=== PATIENT | female | born 1975 | race Caucasian/White ===

== ENCOUNTER 2025-01-28 21:45 | Inpatient (IN) | payer MEDICAID, SELFPAY ==
[~2025-01-28] VITALS: Ht 167.6 cm; Wt 66.8 kg
[2025-01-28 22:36] VITALS: RESP 16; O2SAT 98
[2025-01-29] MEDS: sertraline 50mg tablet PO ONE (01:18)
[2025-01-29 07:56] VITALS: BP 127/79; PULSE 62; RESP 12; TEMP 97.3; O2SAT 98
[2025-01-29] MEDS ORDERED: sertraline 50mg tablet PO SCH (08:00)
[2025-01-29] MEDS ORDERED: magnesium hydroxide 30ml (MOM) UD suspension PO PRN (08:35)
[2025-01-29] MEDS ORDERED: loperamide 2mg capsule PO PRN (08:35)
[2025-01-29] MEDS ORDERED: chlorproMAZINE 25mg tablet PO PRN (08:35)
[2025-01-29] MEDS ORDERED: NICOTINE POLACRILEX 2 MG LOZENGE BC PRN (08:35)
[2025-01-29] MEDS ORDERED: hydrOXYzine 25 MG tablet PO PRN (08:35)
[2025-01-29] MEDS ORDERED: mag hydrox/Alum hydrox/simeth 30ml oral suspension PO PRN (08:35)
[2025-01-29] MEDS ORDERED: acetaminophen 325mg tablet PO PRN (08:35)
[2025-01-29] MEDS ORDERED: diphenhydrAMINE 25mg capsule PO PRN (08:35)
[2025-01-29] MEDS: sertraline 50mg tablet PO SCH (08:38)
[2025-01-29 09:01] LABS: BASOPHILS # (AUTO) 0.1 X10'3 (0-0.2); BASOPHILS % (AUTO) 1.1 % (0-1); EOSINOPHILS # (AUTO) 0.1 X10'3 (0-0.9); EOSINOPHILS % (AUTO) 1.8 % (0-6); HEMATOCRIT 40.9 % (35.0-45.0); HEMOGLOBIN 13.7 g/dl (12.0-16.0); LYMPHOCYTES # (AUTO) 1.7 X10'3 (1.1-4.8); LYMPHOCYTES % (AUTO) 32.2 % (21-51); MEAN CORPUSCULAR HEMOGLOBIN 29.4 PG (27.0-31.0); MEAN CORPUSCULAR HGB CONC 33.6 g/dL (33.0-36.5); MEAN CORPUSCULAR VOLUME 87.3 FL (78-98); MEAN PLATELET VOLUME 8.6 FL (7.4-10.4); MONOCYTES # (AUTO) 0.7 X10'3 (0-0.9); MONOCYTES % (AUTO) 12.9 % (2-12); NEUTROPHILS # (AUTO) 2.8 X10'3 (1.8-7.7); PLATELET COUNT 225 X10'3 (140-440); RED BLOOD COUNT 4.68 X10'6 (4.20-5.60); RED CELL DISTRIBUTION WIDTH 13.3 % (11.5-14.5); WHITE BLOOD COUNT 5.3 X10'3 (4.5-11.0)
[2025-01-29] MEDS: acetaminophen 325mg tablet PO PRN (09:12)
[2025-01-29 09:17] LABS: ALANINE AMINOTRANSFERASE 14 U/L (12-78); ALBUMIN 3.7 G/DL (3.4-5.0); ALBUMIN/GLOBULIN RATIO 1.1 (1.1-1.5); ALKALINE PHOSPHATASE 69 IU/L (46-116); ANION GAP 5 (8-16); ASPARTATE AMINO TRANSFERASE 5 U/L (10-37); BILIRUBIN,TOTAL 1.1 MG/DL (0.1-1.0); BLOOD UREA NITROGEN 9 MG/DL (7-18); CHLORIDE 105 MMOL/L (99-107); CREATININE 0.69 MG/DL (0.40-0.90); GLUCOSE 98 MG/DL (70-104); POTASSIUM 4.5 MMOL/L (3.5-5.1); SODIUM 140 MMOL/L (135-145); TOTAL CARBON DIOXIDE 30.4 MMOL/L (24-32); TOTAL PROTEIN 7.1 G/DL (6.4-8.2); eCRCL 91 ML/MIN; eGFR 90 ML/MIN
[2025-01-29] MEDS: ibuprofen 200mg tablet PO PRN (14:57)
[2025-01-29] MEDS: polyethylene glycol 3350 17gm powd pack PO PRN (15:00)
[2025-01-29] MEDS ORDERED: LYR25C PO (15:28)
[2025-01-29] MEDS ORDERED: METH5TAB4 PO (15:28)
[2025-01-29] MEDS ORDERED: LEVO75TA PO (15:30)
[2025-01-29] MEDS ORDERED: SERT-153 PO (15:33)
[2025-01-29] MEDS ORDERED: CYCL-394 PO (15:33)
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
[2025-01-29] MEDS ORDERED: methylphenidate 5mg tablet PO PRN (15:45)
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
[2025-01-29 19:00] VITALS: RESP 18; O2SAT 99
[2025-01-29 20:00] VITALS: BP 133/78; PULSE 78; RESP 16; TEMP 98.9; O2SAT 99
[2025-01-29] MEDS: pregabalin 25mg capsule PO SCH (20:44)
[2025-01-29] MEDS: traZODone 50mg tablet PO PRN (20:55)
[2025-01-30 07:00] VITALS: RESP 12; O2SAT 98
[2025-01-30] MEDS: levoTHYROXINE 75mcg tablet PO SCH (07:26)
[2025-01-30 08:00] VITALS: BP 123/76; PULSE 68; RESP 12; TEMP 98; O2SAT 98
[2025-01-30] MEDS ORDERED: sertraline 50mg tablet PO SCH (08:00)
[2025-01-30 11:39] LABS: ALBUMIN 3.6 G/DL (3.4-5.0); ANION GAP 6 (8-16); BLOOD UREA NITROGEN 12 MG/DL (7-18); BUN/CREATININE RATIO 12.2 (10.0-20.0); CALCIUM 9.1 MG/DL (8.5-10.1); CHLORIDE 107 MMOL/L (99-107); CREATININE 0.98 MG/DL (0.40-0.90); GLUCOSE 101 MG/DL (70-104); POTASSIUM 4.4 MMOL/L (3.5-5.1); SODIUM 143 MMOL/L (135-145); THYROID STIMULATING HORMONE 1.58 ulU/ml (0.34-4.50); TOTAL CARBON DIOXIDE 30.3 MMOL/L (24-32); eCRCL 64 ML/MIN; eGFR 60 ML/MIN
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
[2025-01-30 12:15] LABS: CHOL/HDL RATIO 3.5 (0.00-4.99); CHOLESTEROL 209 MG/DL (0-200); HDL CHOLESTEROL 60 MG/DL (35-60); LDL CHOLESTEROL 117 MG/DL (50-100); TRIGLYCERIDES 70 MG/DL (20-135)
[2025-01-30 19:00] VITALS: RESP 18; O2SAT 99
[2025-01-30 20:00] VITALS: BP 125/80; PULSE 80; RESP 18; TEMP 98; O2SAT 99
[2025-01-30] MEDS: ibuprofen 200mg tablet PO PRN (21:58)
[2025-01-31 07:00] VITALS: RESP 14; O2SAT 98
[2025-01-31 08:00] VITALS: BP 108/70; PULSE 73; RESP 14; TEMP 98.6; O2SAT 98
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
--- NOTE | 2025-01-31 18:33 | PROGRESS NOTE ---
Daily Progress Note Providers to CC ~ Antibiotic Timeout Antibiotic Ordered?: No Subjective This is the hospitalist progress note on patients hospitalized at [facility]. The patient states that she has fibromyalgia back pain varies other somatic complaints but informs me that the medication she is on now including ibuprofen is helping to manage her symptoms. The patient has no other medical complaints or concerns voiced at this time. Objective Vital Signs Date Time Temp Pulse Resp B/P (MAP) Pulse Ox O2 Delivery O2 Flow Rate FiO2 01/31/25 08:00 98.6 73 14 108/70 (83) 98 Room Air Result Diagram: 01/29/25 0849 01/30/25 1054 Gen. No acute distress alert and oriented Lungs clear to ascultation bilaterally, no wheezes rales or rhonchi appreciated Heart normal sinus rhythm no murmurs rubs or clicks noted Abdomen soft nontender bowel sounds are normoactive Lower extremities no clubbing cyanosis, nor edema appreciated bilaterally Problem\Assessment\Plan Paranoid delusions: Major depressive disorder: Management as per psychiatrist: On Zoloft 50 mg daily. Fibromyalgia: On ibuprofen 600 mg t.i.d. PRN. Hypothyroidism: On levothyroxine 75 mcg daily. Constipation: MiraLax HS prn. Hypercholesterolemia Start 20 mg of atorvastatin There were no acute complaints or concerns voiced by the patient or nursing at this time. The hospitalist service will continue to follow the patient. Date of Service: Jan 31, 2025 Billing Provider: BONI VALDIVIA DO Common Visit Codes: [id number] INP/OBS CARE(MOD) BONI VALDIVIA DO Jan 31, 2025 18:33
[2025-01-31 19:00] VITALS: RESP 17; O2SAT 97
[2025-01-31 20:00] VITALS: BP 117/79; PULSE 81; RESP 17; TEMP 98.7; O2SAT 97
[2025-01-31] MEDS: cyclobenzaprine 10mg tablet PO PRN (20:52)
[2025-02-01] MEDS ORDERED: ATOR20TA66 PO (06:44)
[2025-02-01] MEDS ORDERED: SERT-433 PO (06:44)
--- NOTE | 2025-02-01 06:50 | DISCHARGE SUMMARY ---
Discharge Summary Providers to CC ~ Discharge Summary Admission Diagnosis: MAJOR DEPRESSIVE, RECURRENT. SUICIDAL IDEATION. Hospital Course DATE OF ADMISSION: DATE OF DISCHARGE: Discharge Diagnosis\\Comment: MAJOR DEPRESSIVE, RECURRENT. SUICIDAL IDEATION Operations\\Procedures: NONE Consultants: MEDICAL TEAM Complications: NONE Condition on DC: Stable 2 or more antipsychotic used: No 2/more antipsychotic addressed: No Does Patient smoke: No Smoking education given.: No New Medications: Atorvastatin Calcium (Atorvastatin Calcium) 20 Mg Tablet 20 MG PO DAILY for 14 Days, #14 TAB Sertraline HCl (Sertraline HCl) 50 Mg Tablet 50 MG PO DAILY for 14 Days, #14 TAB Continued Medications: Cyclobenzaprine HCl (Cyclobenzaprine HCl) 10 Mg Tablet 1 TAB PO Q12H PRN for muscle spasms for 10 Days, #30 TAB Levothyroxine Sodium* (Synthroid*) 75 Mcg Tablet 1 TAB PO DAILY for 30 Days, #30 TAB Methylphenidate Hcl (Ritalin) 5 Mg Tablet 1 TAB PO DAILY PRN for call pharmacy for dose for 5 Days, #10 TAB 0 Refills PRN for Myalgic encephalomyeltits/chronic fatigue syndrome Pregabalin* (Lyrica*) 25 Mg Capsule 2 CAP PO HS for 30 Days, #30 CAP Sertraline HCl (Sertraline HCl) 50 Mg Tablet 1 TAB PO DAILY for 30 Days, #30 TAB Discharge Summary: CHART REVIEW Pt is a 49 year old female with presumed diagnosis of depression being treated with Zoloft by her primary physician. Pt claims that she also has chronic fatigue, fibromyalgia and chronic debilitating eurologic condition. Pt report states pt was making statements of not being able to take care of herself and bizarre behavior. Pt was vague, paranoid, guarded and provided minimal information. Pt states she has been harassed by her neighbor and feels her neighbor is a threat but feels also that the police have not sufficiently addressed her issues. Pt states her 911 calls have been limited as they dont care to help her. Pt also ststes that during an ambulance ride the traffic enumerator were not addressing her issues and that is why she started having PTSD flashbacks and wanted to crawl out of the ambulance while it was moving. Patient actively seen and examined on day of discharge 02/01/2025, by myself, MERISSA Fuentes. The patient is interviewed in observation room. The patient endorses "Good." Denies SI. Denies HI. Denies AVH. Merly was able to formulate a safety plan which includes going to the emergency room if symptoms return or worsen. Call [phone] or [phone] for immediate assistance if necessary. During his hospital stay, Merly receive multidisciplinary treatment he adhered to his medication regimen and has been pleasant and cooperative. She denies any suicidal ideation (SI), homicidal ideation (HI), auditory/visual hallucination (HI). Staff has reported no behavioral issues, and the patient has been sleeping well, adequate food intake, with no mood or behavioral changes noted. The decision to discharge Merly was made in consensus with the treatment team, including the social media community manager, clinical unit educator, and charge out clerk on duty. The patient was E-scribed a 14-day supply of mediation to preferred pharmacy. MENTAL STATUS EXAM APPEARANCE: APPROPRIATELY. DRESSED IN STREET CLOTHING. SPEECH: CIRCUMSTANTIAL EYE CONTACT: NORMAL AFFECT: CONGRUENT WITH MOOD MOOD: "GOOD" ORIENTATION IMPAIRMENT: NONE MEMORY IMPAIRMENT: NONE ATTENTION: NORMAL HALLUCINATIONS: NONE SUICIDALITY: NONE HOMICIDALITY: NONE DELUSIONS: NONE BEHAVIOR: COOPERATIVE, PLEASANT JUDGMENT: GOOD INSIGHT: GOOD Continue Current Inpatient Psychotropic Regimen @ home Follow-Up with Psychiatric Provider Safety Plan Discussed DISCHARGE CONDITION: Her readiness for discharge is supported by his stable mental status, adherence to treatment, and proactive approach to managing his mental health. Denies SI. Denies HI. Denies A/V/H. The patient has been informed to continue follow-up care to ensure ongoing support and monitoring. Patient discharged to home/ex- husbands house. *Problems/Diagnosis: (1) Major depression, recurrent (2) Suicidal ideation Total Time Spent on D/C: > 30 Minutes Counseling Services Smoking & Tobacco Cessation: > 10 Minutes CODING VISIT-PSYCHIATRY Date of Service: Feb 01, 2025 Billing Provider: JOHN THOMPSON APRN Psych Common Visit Codes: 70856-AMD/OBS DISCH DAY >30min JOHN THOMPSON APRN Feb 01, 2025 06:47
[2025-02-01 07:00] VITALS: RESP 12; O2SAT 97
[2025-02-01] MEDS: atorvastatin 20mg tablet PO SCH (07:59)
[2025-02-01 08:00] VITALS: BP 122/71; PULSE 77; RESP 12; TEMP 97; O2SAT 97
== END 2025-02-01 13:10 | disposition home or self-care (01) | DRG 751 ==
LOC: ADULT MH 21:45
PROVIDERS: ADMIT Psychiatry & Neurology Psychiatry; ATTEND Psychiatry & Neurology Psychiatry
PROC: GZHZZZZ Group Psychotherapy (ICD-10-PCS; principal; 2025-01-29)
PROC: GZ51ZZZ Individual Psychotherapy, Behavioral (ICD-10-PCS; 2025-01-29)
DX: F33.9 Major depressive disorder, recurrent, unspecified (principal); R45.851 Suicidal ideations; F41.0 Panic disorder [episodic paroxysmal anxiety]; E78.00 Pure hypercholesterolemia, unspecified; K59.00 Constipation, unspecified; F43.10 Post-traumatic stress disorder, unspecified; M79.7 Fibromyalgia; Z79.899 Other long term (current) drug therapy; Z90.710 Acquired absence of both cervix and uterus; Z90.49 Acquired absence of other specified parts of digestive tract
CPT/HCPCS: 36415; 80048; 80053; 80061; 84443; 85025; 87081; 99285